=== PATIENT | male | born 1990 | race Caucasian/White ===

== ENCOUNTER 2017-12-12 08:49 | Emergency (ER) | payer SELFPAY ==
[2017-12-12 09:02] VITALS: BP 139/95
== END 2017-12-12 09:04 | disposition left against medical advice (07) ==
LOC: ED 08:49
DX: I10 Essential (primary) hypertension (principal); R07.9 Chest pain, unspecified; Z53.21 Procedure and treatment not carried out due to patient leaving prior to being seen by health care provider
CPT/HCPCS: 93005; 93010

== ENCOUNTER 2022-05-05 06:37 | Emergency (ER) | payer SELFPAY ==
[2022-05-05 06:49] VITALS: BP 111/72
[2022-05-05] MEDS ORDERED: dexAMETHasone 4 MG/ML VIAL IM ONE (11:47)
--- NOTE | 2022-05-05 12:10 | Emergency Department Report ---
ED Dizziness HPI - General Chief Complaint: BP Check / Ring removal req Stated Complaint: BLOOD PRESSURE Time Seen by Provider: 05/05/22 11:09 Source: patient Mode of arrival: Ambulatory Limitations: No Limitations - History of Present Illness Initial Comments: 31-year-old black male with a past medical history of hypertension presents to the emergency department for evaluation of dizziness since yesterday. He states that he thinks that he needs to have his hypertensive medication change. He states that a year ago he was taking lisinopril while in retirement and then he was changed to losartan which she has been taking for 1 year with no symptoms. He states that a couple days ago he just started to have some dizziness along with intermittent runny nose and headache. He denies cough, fever, and weakness/fatigue. MD Complaint: dizziness, lightheadedness -: days(s) (2) Timing: gradual onset Description: lightheadedness History of Same: No History of Trauma: No Severity: mild Associated Symptoms: denies other symptoms - Related Data Previous Rx's Medication Instructions Recorded Last Taken Type Levocetirizine Dihydrochloride 5 mg PO QPM #15 tab 05/05/22 Unknown Rx [Xyzal] methylPREDNISolone [Medrol 4MG 4 mg PO DAILY #1 pack 05/05/22 Unknown Rx DOSEPAK (21 tabs)] Allergies Allergy/AdvReac Type Severity Reaction Status Date / Time codeine Allergy Unknown Verified 12/12/17 08:58 ED Review of Systems ROS: Stated complaint: BLOOD PRESSURE Other details as noted in HPI Comment: All other systems reviewed and negative Constitutional: denies: chills, fever, malaise, weakness Eyes: denies: eye pain, vision change ENT: denies: dental pain, congestion Respiratory: denies: cough, shortness of breath, SOB with exertion, stridor, wheezing Cardiovascular: denies: chest pain, palpitations, dyspnea on exertion, orthopnea, edema, syncope, paroxysmal nocturnal dyspnea Gastrointestinal: denies: abdominal pain, nausea, vomiting Genitourinary: denies: urgency, dysuria Musculoskeletal: denies: back pain Skin: denies: rash, lesions Neurological: headache ED Past Medical Hx - Past Medical History Hx Hypertension: Yes - Social History Smoking Status: Current Every Day Smoker Substance Use Type: None - Medications Home Medications: Home Medications Medication Instructions Recorded Confirmed Last Taken Type Levocetirizine Dihydrochloride 5 mg PO QPM #15 tab 05/05/22 Unknown Rx [Xyzal] methylPREDNISolone [Medrol 4MG 4 mg PO DAILY #1 pack 05/05/22 Unknown Rx DOSEPAK (21 tabs)] ED Physical Exam - General Limitations: No Limitations General appearance: alert, in no apparent distress - Head Head exam: Present: atraumatic, normocephalic - Eye Eye exam: Present: normal appearance. Absent: scleral icterus, conjunctival injection, periorbital swelling, periorbital tenderness - ENT ENT exam: Present: TM's normal bilaterally. Absent: normal exam (Bilateral nasal mucosal edema along with turbinate swelling.), normal orophraynx (Erythema noted to the posterior oropharynx.) - Expanded ENT Exam Expanded Throat exam: Negative: tonsillar erythema, tonsillomegaly, tonsillar exudate, R peritonsillar mass, L peritonsillar mass - Neck Neck exam: Present: normal inspection. Absent: tenderness, meningismus, lymphadenopathy - Respiratory Respiratory exam: Present: normal lung sounds bilaterally. Absent: respiratory distress, wheezes, rales, rhonchi, stridor, chest wall tenderness - Cardiovascular Cardiovascular Exam: Present: regular rate, normal heart sounds - GI/Abdominal GI/Abdominal exam: Present: soft, normal bowel sounds. Absent: distended, tenderness, guarding, rebound, rigid - Extremities Exam Extremities exam: Present: normal inspection, normal capillary refill. Absent: tenderness, pedal edema, joint swelling, calf tenderness - Back Exam Back exam: Present: normal inspection. Absent: CVA tenderness (R), CVA te nderness (L), vertebral tenderness - Neurological Exam Neurological exam: Present: alert, oriented X3, CN II-XII intact, normal gait, reflexes normal. Absent: motor sensory deficit - Psychiatric Psychiatric exam: Present: normal affect, normal mood - Skin Skin exam: Present: warm, dry, intact, normal color ED Course Vital Signs 05/05/22 06:40 Temperature 98.3 F Pulse Rate 66 Respiratory 18 Rate Blood Pressure 111/72 O2 Sat by Pulse 100 Oximetry ED Medical Decision Making - Medical Decision Making 31-year-old black male with a past medical history of hypertension presents to the emergency department for evaluation of dizziness since yesterday. He states that he thinks that he needs to have his hypertensive medication change. He states that a year ago he was taking lisinopril while in retirement and then he was changed to losartan which she has been taking for 1 year with no symptoms. He states that a couple days ago he just started to have some dizziness along with intermittent runny nose and headache. He denies cough, fever, and weakness/fatigue. Physical exam and symptoms consistent with sinusitis. Patient will be given Decadron 8 mg IM while in the emergency department and discharged home with Medrol Dosepak and Xyzal to use as directed. He is advised to continue his blood pressure medication as previously prescribed and monitor and record blood pressure readings twice a day for the next several days follow-up with primary care provider for further evaluation and management. He is advised to return to the emergency department as needed. He verbalizes understanding of and agreement with plan of care. Critical care attestation.: If time is entered above; I have spent that time in minutes in the direct care of this critically ill patient, excluding procedure time. ED Disposition Clinical Impression: Sinusitis Qualifiers: Sinusitis location: frontal Chronicity: acute Recurrence: non-recurrent Qualified Code(s): J01.10 - Acute frontal sinusitis, unspecified Disposition: 01 HOME / SELF CARE / HOMELESS Is pt being admited?: No Does the pt Need Aspirin: No Condition: Stable Instructions: Sinusitis, Adult, [id number], Sinus Headache, [id number] Additional Instructions: Take medications as prescribed. Increase intake of noncaffeinated fluids. Monitor and record blood pressure at least twice a day for the next several days and follow-up with readings to your primary care provider for further evaluation and management. Return to the emergency department as needed. Prescriptions: methylPREDNISolone [Medrol 4MG DOSEPAK (21 tabs)] 4 mg PO DAILY #1 pack Levocetirizine Dihydrochloride [Xyzal] 5 mg PO QPM #15 tab Referrals: RODRIGUEZ PERKINS MD [Primary Care Provider] - 3-5 Days Forms: Work/School Release Form(ED) Time of Disposition: 12:17
== END 2022-05-05 12:44 | disposition home or self-care (01) ==
LOC: ED 06:37
DX: J32.9 Chronic sinusitis, unspecified (principal); I10 Essential (primary) hypertension; F17.290 Nicotine dependence, other tobacco product, uncomplicated; Z88.5 Allergy status to narcotic agent
CPT/HCPCS: 96372; 99282; J1100

== ENCOUNTER 2022-06-08 21:01 | Emergency (ER) | payer SELFPAY ==
--- NOTE | 2022-06-09 02:03 | Emergency Department Report ---
ED General Adult HPI - General Chief complaint: Dizziness Stated complaint: LIGHT HEADED,DIZZINESS Source: patient, EMS Mode of arrival: Stretcher Limitations: No Limitations - Related Data Previous Rx's Medication Instructions Recorded Last Taken Type Levocetirizine Dihydrochloride 5 mg PO QPM #15 tab 05/05/22 Unknown Rx [Xyzal] methylPREDNISolone [Medrol 4MG 4 mg PO DAILY #1 pack 05/05/22 Unknown Rx DOSEPAK (21 tabs)] Losartan [Cozaar] 50 mg PO QDAY #30 tablet 06/09/22 Unknown Rx Allergies Allergy/AdvReac Type Severity Reaction Status Date / Time codeine Allergy Unknown Verified 12/12/17 08:58 ED Review of Systems ROS: Stated complaint: LIGHT HEADED,DIZZINESS Other details as noted in HPI Constitutional: denies: chills, fever Eyes: denies: eye pain, eye discharge, vision change ENT: denies: ear pain, throat pain Respiratory: denies: cough, shortness of breath, wheezing Cardiovascular: denies: chest pain, palpitations Endocrine: no symptoms reported Gastrointestinal: denies: abdominal pain, nausea, diarrhea Genitourinary: denies: urgency, dysuria Musculoskeletal: denies: back pain, joint swelling, arthralgia Skin: denies: rash, lesions Neurological: denies: headache, weakness, numbness, paresthesias, confusion, vertigo Psychiatric: denies: anxiety, depression Hematological/Lymphatic: denies: easy bleeding, easy bruising ED Past Medical Hx - Past Medical History Hx Hypertension: Yes - Social History Smoking Status: Current Every Day Smoker Substance Use Type: None - Medications Home Medications: Home Medications Medication Instructions Recorded Confirmed Last Taken Type Levocetirizine Dihydrochloride 5 mg PO QPM #15 tab 05/05/22 Unknown Rx [Xyzal] methylPREDNISolone [Medrol 4MG 4 mg PO DAILY #1 pack 05/05/22 Unknown Rx DOSEPAK (21 tabs)] Losartan [Cozaar] 50 mg PO QDAY #30 tablet 06/09/22 Unknown Rx ED Physical Exam - General Limitations: No Limitations General appearance: alert, in no apparent distress - Head Head exam: Present: normocephalic, normal inspection - Eye Eye exam: Present: PERRL, EOMI Pupils: Present: normal accommodation - ENT ENT exam: Present: normal orophraynx, mucous membranes moist, TM's normal bilaterally - Neck Neck exam: Present: normal inspection, full ROM. Absent: tenderness, lymphadenopathy - Respiratory Respiratory exam: Present: normal lung sounds bilaterally. Absent: respiratory distress, wheezes, chest wall tenderness - Cardiovascular Cardiovascular Exam: Present: regular rate, normal rhythm, normal heart sounds. Absent: systolic murmur, diastolic murmur, rubs, gallop - GI/Abdominal GI/Abdominal exam: Present: soft, normal bowel sounds. Absent: distended, tenderness - Rectal Rectal exam: Present: deferred - Extremities Exam Extremities exam: Present: normal inspection, full ROM, normal capillary refill. Absent: tenderness, pedal edema - Back Exam Back exam: Present: normal inspection, full ROM. Absent: CVA tenderness (R), CVA tenderness (L), muscle spasm, paraspinal tenderness, vertebral tenderness - Neurological Exam Neurological exam: Present: alert, oriented X3, CN II-XII intact, normal gait, reflexes normal. Absent: motor sensory deficit - Expanded Neurological Exam Expanded Patient oriented to: Present: person, place, time Speech: Present: fluid speech Motor strength exam: RUE: 5, LUE: 5, RLE: 5, LLE: 5 Best Eye Response (Rico): (4) open spontaneously Best Motor Response (Rico): (6) obeys commands Best Verbal Response (Rico): (5) oriented Rico Total: 15 - Psychiatric Psychiatric exam: Present: normal affect, normal mood - Skin Skin exam: Present: warm, dry, intact, normal color. Absent: rash ED Course Vital Signs 06/08/22 22:27 Temperature 97.4 F L Pulse Rate 73 Respiratory 16 Rate Blood Pressure 181/103 [Left] O2 Sat by Pulse 100 Oximetry ED Medical Decision Making - Medical Decision Making Patient is currently alert oriented x3 amatory with steady gait patient denies chest pain there is no shortness of breath no nausea vomiting no diaphoresisno headache. Plan refill losartan as requested. Follow-up with primary care doctor in 2 to 3 days patient verbalized agreement understanding with discharge plan patient DC'd home in stable condition at this time. Critical care attestation.: If time is entered above; I have spent that time in minutes in the direct care of this critically ill patient, excluding procedure time. ED Disposition Clinical Impression: Essential (primary) hypertension Disposition: 01 HOME / SELF CARE / HOMELESS Is pt being admited?: No Does the pt Need Aspirin: No Condition: Stable Instructions: Hypertension (ED), DASH Eating Plan, Managing Your Hypertension Additional Instructions: Take medications as prescribed, follow-up with your doctor in 2 to 3 days. Return to emergency department should symptoms worsen. Prescriptions: Losartan [Cozaar] 50 mg PO QDAY #30 tablet Referrals: [facility] [Provider Group] - 3-5 Days Forms: Work/School Release Form(ED) Time of Disposition: 02:09
[2022-06-09 02:19] VITALS: BP 176/100
== END 2022-06-09 02:38 | disposition home or self-care (01) ==
LOC: ED 21:01
DX: I10 Essential (primary) hypertension (principal); R42 Dizziness and giddiness; F17.200 Nicotine dependence, unspecified, uncomplicated; Z79.899 Other long term (current) drug therapy; Z88.5 Allergy status to narcotic agent
CPT/HCPCS: 99283